=== PATIENT | male | born 1960 | race Caucasian/White ===

== ENCOUNTER 2024-08-14 06:50 | Day surgery (SDC) | payer BC ==
[2024-08-11 09:53] LABS: BASOPHILS # (AUTO) 0.1 (0.0-0.1); BASOPHILS % 0.7 % (0.0-1.0); EOSINOPHILS # (AUTO) 0.2 (0.0-0.4); EOSINOPHILS % 3.2 % (0.0-6.0); HEMATOCRIT 51.8 % (38.2-49.6); HEMOGLOBIN 16.7 g/dL (14.0-18.0); LYMPHOCYTES # (AUTO) 1.2 (1.0-3.2); LYMPHOCYTES % 16.2 % (18.0-39.1); MEAN CORPUSCULAR HEMOGLOBIN 32.2 pg (28-32); MEAN CORPUSCULAR HGB CONC 32.2 g/dL (31-35); MEAN CORPUSCULAR VOLUME 99.8 fL (81-99); MONOCYTES # (AUTO) 0.7 (0.2-0.8); MONOCYTES % 9.8 % (4.4-11.3); NEUTROPHILS # (AUTO) 5.1 (2.1-6.9); PLATELET COUNT 273 x10e3/uL (140-360); RED BLOOD COUNT 5.19 x10e6/uL (4.3-5.7); RED CELL DISTRIBUTION WIDTH 12.1 % (11.7-14.4); WHITE BLOOD COUNT 7.28 x10e3/uL (4.8-10.8)
[2024-08-11 10:17] LABS: ALBUMIN/GLOBULIN RATIO 1.3 (0.8-2.0); ANION GAP 15.5 mmol/L (8-16); BILIRUBIN,TOTAL 1.1 mg/dL (0.2-1.2); CALCIUM 9.7 mg/dL (8.4-10.2); CREATININE, SERUM 0.98 mg/dL (0.72-1.25); POTASSIUM 4.5 mmol/L (3.5-5.1); TOTAL PROTEIN 7.1 g/dL (6.5-8.1)
[~2024-08-14] VITALS: Ht 175.3 cm; Wt 121.6 kg
[2024-08-14] VITALS (16 sets, daily range): BP systolic 107–155; BP diastolic 57–93; PULSE 59–71; RESP 12–22; TEMP 96.6–97; O2SAT 97–100
[~2024-08-14 06:50] MED LIST: ASPIRIN81 MG PO; LIPITOR20 MG PO; METOPROLOL SUCC25 MG PO; PLAVIX75 MG PO; PROTONIX40 MG/ML; Z.0.ATIVAN2 MG PO; Z.0.OMEPRAZOLE40 MG PO; Z.1.AMOXICILLIN500 M PO; [UNRECOGNIZED DRUG - OTHER] PO; [UNRECOGNIZED DRUG - OTHER] PO
[2024-08-14] MEDS ORDERED: VERAPAMIL HCL 2.5 MG/ML 2 ML VIAL ONE (08:00)
[2024-08-14] MEDS ORDERED: HEPARIN SOD (PORCINE) 1000 UNIT/ML 30ML ONE (08:00)
[2024-08-14] MEDS ORDERED: LIDOCAINE HCL 2% LOCAL 20 ML VIAL ONE (08:01)
[2024-08-14] MEDS ORDERED: SODIUM CHLORIDE 0.9% 1000ML 1,000 ML ONE (08:01)
[2024-08-14] MEDS ORDERED: HEPARIN SOD/SOD CHLORIDE 2,000 ML ONE (08:01)
[2024-08-14] MEDS ORDERED: NITROGLYCERIN/D5W 200 MCG/ML 250 ML ONE (08:01)
[2024-08-14] MEDS ORDERED: IOPAMIDOL 370 MG/ML 100 ML INFUS..BTL INJ ONE (08:01)
[2024-08-14] MEDS: DIPHENHYDRAMINE HCL 25 MG CAP ONE (09:10)
[2024-08-14] MEDS: ALPRAZOLAM 0.5 MG TAB ONE (09:11)
[2024-08-14] MEDS ORDERED: FENTANYL CITRATE/PF 100MCG/2 ML INJ ONE (09:44)
[2024-08-14] MEDS ORDERED: MIDAZOLAM HCL 2 MG/2 ML VIAL ONE (09:44)
== END 2024-08-14 15:00 | disposition home or self-care (01) ==
LOC: CATH LAB 06:50
PROVIDERS: ATTEND Internal Medicine
DX: I25.119 Atherosclerotic heart disease of native coronary artery with unspecified angina pectoris (principal); R94.39 Abnormal result of other cardiovascular function study; Z95.5 Presence of coronary angioplasty implant and graft; I25.2 Old myocardial infarction; Z01.812 Encounter for preprocedural laboratory examination; Z79.02 Long term (current) use of antithrombotics/antiplatelets; Z79.82 Long term (current) use of aspirin; Z79.899 Other long term (current) drug therapy; Z68.41 Body mass index [BMI] 40.0-44.9, adult
CPT/HCPCS: 36415; 76937; 80053; 85025; 92920; C1725 ×2; C1769; C1874; C1887 ×3; J1644; J2003; J2250; J3010; J7030; Q9967; 93454; 99152; 99153